=== PATIENT | female | born 1990 | race African-American/Black ===

== ENCOUNTER 2017-09-02 10:20 | Emergency (ER) | payer MEDICAID ==
[~2017-09-02] VITALS: Ht 180.3 cm; Wt 77.1 kg
[2017-09-02 10:44] VITALS: BP 110/70
[2017-09-02] MEDS ORDERED: TYLENOL EXTRA500 MG ORAL (10:56)
[2017-09-02] MEDS ORDERED: ROBAXIN-750750 MG PO (10:56)
[2017-09-02 11:16] VITALS: BP 110/70
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
== END 2017-09-02 11:17 | disposition home or self-care (01) ==
LOC: EMR 10:47
DX: M54.2 Cervicalgia (principal); M54.9 Dorsalgia, unspecified; V43.52XA Car driver injured in collision with other type car in traffic accident, initial encounter; Y92.410 Unspecified street and highway as the place of occurrence of the external cause
CPT/HCPCS: 99284